=== PATIENT | female | born 1985 | race Caucasian/White ===

== ENCOUNTER 2020-08-21 07:30 | Inpatient (IN) ==
[2020-08-21] MEDS: LACTATED RINGER'S 1,000 ML IV PRN ×2 (07:57→10:01)
[2020-08-21] MEDS ORDERED: OXYTOCIN 30 UNITS/500 ML BAG IV PRN ×2 (07:58→11:36)
[2020-08-21] MEDS ORDERED: ePHEDrine sulfate 50 MG/ML AMP ONE (08:03)
[2020-08-21] MEDS ORDERED: SODIUM CHLORIDE 0.9% INJ 10 ML VIAL ONE (08:03)
[2020-08-21] MEDS ORDERED: fentaNYL citrate 100 MCG/2 ML VIAL ONE (08:04)
[2020-08-21] MEDS ORDERED: fentaNYL 2MCG/ML ROPIVACAINE 1.25MG/ML 100 ML BAG EPI ONE (08:04)
[2020-08-21] MEDS ORDERED: BUPIVACAINE 0.25% 30 ML VIAL ONE (08:04)
--- NOTE | 2020-08-21 08:16 | History & Physical Report ---
Date of Service August 21, 2020 Assessment & Plan (1) Normal labor: Admission and Anticipated Discharge Date Admission Date: August 21, 2020 IUP at 40+ weeks in active labor- was to be induced today for post term requesting epidural analgesia anticipate vaginal History of Present Illness Primary Care Provider: Morris Cr MD Patient is a 34 yo white female EDC 08/19/20 who presents with regular contractions since 0400. no SPROM or bloody show. GBS negative/ O positive Allergies Allergy/AdvReac Type Severity Reaction Status Date / Time No Known Allergies Allergy Unknown Verified 08/20/20 11:35 Home Medications Medication Instructions Recorded Confirmed Type prenat.vits,kevin,[id number] 1 tab PO HS 01/17/20 08/20/20 History Patient History Medical History Asthma Surgical History H/O arthroscopy of left knee H/O wisdom tooth extraction Status post meniscectomy Family History Other Depression Heart disease Hypertension Social History Smoking Status: Never smoker Hx Alcohol Use: No Hx Substance Use: No Preferred Language: Angolan Communication Ability: Effective Visual Impairment: No Limitations Hearing Ability: Normal Health Assessment And Treatment Teacher Required: No Beliefs That Will Affect Care: None marital status: marital status details: Brennan (33) [phone] Current Living Situation: Spouse Current Living Situation Comment: lives with spouse and son, 1 dog. current occupational status: employed current occupation: [employer] at [employer] Feels Safe at Home: Yes Assistive Devices: None Review of Systems All systems reviewed & are unremarkable except as noted in HPI & below Physical Exam Constitutional: WD/WN, vitals as above Respiratory: normal respiratory effort, lungs clear to auscultation Cardiovascular: RRR, no murmur, no edema Gastrointestinal (Abdomen): normal bowel sounds, soft, nontender, no hepatosplenomegaly Psychiatric: A+Ox3, euthymic affect Genitourinary: OB Exam Abdomen: + estimated weight (8-9 pounds) and + regular contractions (3 minutes) Manual OB Exam: + cervical dilation 4 cm, + cervical effacement 100% and + station -2 OB Exam Monitor Tracing: + external FHT monitor used, + external uterine monitor used, + category I and + normal FHT variability Results & Data ([facility]) Vital Signs (Past 12 Hours) Vital Signs Pulse BP 08/21/20 07:37 64 124/62 Coding Level of Care Code None Diagnoses Normal labor O80; Z37.9
[2020-08-21] MEDS ORDERED: ePHEDrine sulfate 50 MG/ML AMP IV PRN (08:21)
[2020-08-21] MEDS ORDERED: fentaNYL 2MCG/ML ROPIVACAINE 1.25MG/ML 100 ML BAG EPI PRN (08:21)
[2020-08-21] MEDS ORDERED: NALOXONE HCL 1 MG in SODIUM CHLORIDE 0.9% 1000ML 1,000 ML IV PRN (08:21)
[2020-08-21] MEDS ORDERED: NALOXONE HCL 0.4 MG/1 ML VIAL/CARP IV PRN (08:21)
[2020-08-21] MEDS ORDERED: diphenhydrAMINE 50 MG/ML VIAL IV PRN (08:21)
[2020-08-21] MEDS ORDERED: ONDANSETRON INJ 2 MG/ML 2 ML VIAL IV PRN (08:21)
--- NOTE | 2020-08-21 08:32 | Anesthesiology Consultation ---
Date of Service August 21, 2020 Assessment & Plan (1) Encounter for pre-operative examination: Chart Review Chart Review: Acceptable Risk for Labor Epidural Consults Requested none ASA ASA2 Proposed Anesthesia Anesthesia Type: Labor Epidural Risk / Benefits Reviewed With: PT / POA / Parent / Guardian, Accepts Plan and Informed Consent Obtained History Allergies Allergy/AdvReac Type Severity Reaction Status Date / Time No Known Allergies Allergy Unknown Verified 08/20/20 11:35 Medications Home Medications Medication Instructions Recorded Confirmed Last Taken prenat.vits,kevin,[id number] 1 tab PO HS 01/17/20 08/21/20 08/20/20 Past Medical History Medical History Anxiety Asthma Common migraine without aura Exercise / Class Metabolic Activity II 4-5 Yardwork/Stairs/Walk up hill Past Family History Family History Other Depression Heart disease Hypertension Past Surgical History Surgical History H/O arthroscopy of left knee H/O wisdom tooth extraction Status post meniscectomy Past Anesthesia History No Hx of Anesthesia Complications and No Family Hx of Anesthesia Complications History of PONV No Hx of PONV and No Hx of Motion Sickness Social History Smoking Status: Never smoker Hx Alcohol Use: No Hx Substance Use: No Physical Exam Vital Signs Last Vital Signs Pulse 64 08/21/20 07:37 BP 124/62 08/21/20 07:37 ENMT Mouth: no dentition abnormality Thyromental Distance: > or= 3.5 Finger Breadths Mallampati Class: II Neck normal visual inspection Respiratory normal respiratory effort Auscultation: lungs clear to auscultation bilaterally Cardiovascular Rate/Rhythm: regular rate and regular rhythm Lab Results Anesthesia Preop Results Results Anesthesia Widget: WBC 10.59 K/uL (4.8-10.8) 08/21/20 Hgb 12.9 g/dL (12.0-16.0) 08/21/20 Hct 37.0 % (37-47) 08/21/20 Plt 286 K/uL (130-400) 08/21/20 Na 138 mmol/L (136-145) 07/17/20 K 3.8 mmol/L (3.5-5.1) 07/17/20 Cl 110 mmol/L (98-107) H 07/17/20 CO2 20 mmol/L (21-32) L 07/17/20 BUN 8 mg/dl (7-18) 07/17/20 Creat 0.69 mg/dl (0.6-1.2) 07/17/20 Glucose Level 98 mg/dl (70-99) 07/17/20 TSH 1.500 uIu/ml (0.300-4.500) 07/17/20 Urine Color Yellow 07/17/20 Urine Appearance Clear (Clear) 07/17/20 Urine pH 6.5 (4.5-7.5) 07/17/20 Urine Specific [place] 1.017 (1.000-1.030) 07/17/20 Urine Protein Negative (Negative) 07/17/20 Urine Glucose (UA) Negative (Negative) 07/17/20 Urine Ketones Negative (Negative) 07/17/20 Urine Blood Negative (Negative) 07/17/20 Urine Nitrite Negative (Negative) 07/17/20 Urine Bilirubin Negative (Negative) 07/17/20 Urine Urobilinogen Negative (Negative) 07/17/20 Urine Leukocyte Esterase 2+ (Negative) H 07/17/20 Urine WBC (Auto) 10-30 /hpf (0-5) H 07/17/20 Urine RBC (Auto) 0-4 /hpf (0-4) 07/17/20 Urine Hyaline Casts (Auto) 1-5 /lpf (0-5) 07/17/20 Urine Epithelial Cells (Auto) >30 /lpf (0-5) H 07/17/20 Urine Bacteria (Auto) 1+ (Negative) H 07/17/20
[2020-08-21 08:33] LABS: Hemoglobin 12.9 g/dL (12.0-16.0); Mean Corpuscular Hemoglobin 31.3 pg (25-34); Mean Corpuscular Hgb Conc 34.9 g/dL (32-36); Mean Corpuscular Volume 89.8 fL (80-100); Mean Platelet Volume 10.6 fL (7.4-10.4); Platelet Count 286 K/uL (130-400); RDW Standard Deviation 46.1 fL (36.4-46.3); Red Blood Count 4.12 M/uL (4.2-5.4); White Blood Count 10.59 K/uL (4.8-10.8)
[2020-08-21] MEDS ORDERED: BENZOCAINE 20% AER SPR 82.5 GM CAN EXT PRN (11:36)
[2020-08-21] MEDS ORDERED: SUPERCREAM 0.870% 15 GM JAR EXT PRN (11:36)
[2020-08-21] MEDS ORDERED: HYDROCORTISONE ACETATE 25 MG SUPP PR PRN (11:36)
[2020-08-21] MEDS ORDERED: ACETAMINOPHEN 325 MG TAB PO PRN (11:36)
[2020-08-21] MEDS ORDERED: DIPHTHERIA/TETANUS/PERTUSSIS 0.5 ML SYR/VIAL IM ONE (11:36)
--- NOTE | 2020-08-21 11:37 | Anesthesia Procedure Note ---
Date of Service August 21, 2020 Anesthesia Post Epidural Note Vital Signs Vital Signs: Temp Pulse Resp BP Pulse Ox 99.0 F 58 L 18 128/59 L 95 08/21/20 10:13 08/21/20 11:31 08/21/20 10:13 08/21/20 11:31 08/21/20 10:40 Pain Intensity Bilateral Abdomen: Pain Intensity: 5 Notes Mental Status: alert / awake / arousable and participated in evaluation Nausea / Vomiting: adequately controlled Pain: adequately controlled Airway Patency, RR, SpO2: stable & adequate BP & HR: stable & adequate Hydration State: stable & adequate Neuraxial Anesthesia: was administered and sensory block is resolving Anesthetic Complications: no major complications apparent and Pt Satisfied with anesthetic care Epidural: Removed without complications and With tip intact
--- NOTE | 2020-08-21 15:34 | Delivery Summary ---
DATE OF OPERATION: 08/21/2020 PROCEDURE: Normal spontaneous vaginal delivery, second-degree perineal laceration repair. SURGEON: Rajesh King MD. PREOPERATIVE DIAGNOSES: 1. Single intrauterine at 40 weeks 2 days gestational age. 2. Labor. POSTOPERATIVE DIAGNOSES: 1. Single intrauterine at 40 weeks 2 days gestational age. 2. Labor. 3. Status post procedure. ESTIMATED BLOOD LOSS: 300 mL. DRAINS: None. FLUIDS: Continuous lactated Ringer. URINE OUTPUT: Not measured. COMPLICATIONS: None. FINDINGS: Viable female with weight pending, Apgars of 8 and 9 at one and five minutes respectively. DESCRIPTION OF PROCEDURE: The patient progressed to 10 cm dilated, 100% effaced, +2 station, pushed over intact perineum with epidural anesthesia and delivered a viable female , weight and Apgars as noted above. Head of the delivered in MARY position, restituted to left transverse. A nuchal cord was noted, which was easily reduced. Body and shoulders quickly followed. was noted to be vigorous soon after delivery and a 1-minute delayed cord clamping was initiated. Cord was then double clamped and cut. Cord blood was then obtained. Attention was then turned to deliver the placenta, which was delivered intact, 3-vessel cord. On inspection of perineum, vagina, and cervix, there was noted to be second degree perineal laceration. This was repaired with 3-0 Vicryl in traditional crown stitch. Both the patient and were in stable condition after the completion of the procedure. Needle, sponge and instrument counts were correct at the completion of the case. I attest to the content of the Intraoperative Record and any orders documented therein. Any exception s are noted below.
[2020-08-21] MEDS: IBUPROFEN 600 MG TAB PO PRN ×2 (18:31→23:22)
[2020-08-21] MEDS ORDERED: DOCUSATE SODIUM 100 MG CAP PO SCH (21:00)
[2020-08-22] MEDS: IBUPROFEN 600 MG TAB PO PRN ×3 (03:43→11:43)
--- NOTE | 2020-08-22 07:26 | Obstetrical Progress Note ---
Date of Service <Miguel A Vazquez MD - Last Filed: 08/22/20 07:26> August 22, 2020 Assessment & Plan <Miguel A Vazquez MD - Last Filed: 08/22/20 07:26> (1) Normal labor: A/P: Patient is a 34yo female on PPD#1 following at 40+2wga. * Patient feels well today; eating well, voiding well, ambulating well * Pain moderately-controlled with ibuprofen 600mg q4h prn * PNL: Rh pos, RI, GBS neg, COVID neg * Routine care: OOB, ambulation, diet progression as tolerated * After discharge, will have six-week follow-up with Dr. King Subjective <Miguel A Vazquez MD - Last Filed: 08/22/20 07:26> Patient is a 34yo female on PPD#1 following at 40+2wga. This morning, patient feels well "okay".Reports mild/moderate crampy abdominal pain somewhat-controlled at this time; patient requests additional motrin.Tolerating PO intake without nausea or vomiting. Patient has been able to ambulate without lightheadedness or dizziness. Voiding well without difficulty. Lochia is gradually improving over time. Patient is . Review of Systems Denies fever, chills, CP, SOB, cough, breast pain, dysuria, leg pain, leg swelling, headache, and changes in vision. Physical Exam <Miguel A Vazquez MD - Last Filed: 08/22/20 07:26> General: alert, oriented, no acute distress Cardiac: regular rate and rhythm, no murmur appreciated Respiratory: lungs clear to auscultation bilaterally a/p, no wheezes/rales/rhonchi, no increased work of breathing, symmetrical chest rise, no respiratory distress Abd: normal gravid abdomen, soft, minimally tender, BS present : uterine fundus firm, palpable 2-3 cm below umbilicus LE: no lower extremity edema bilaterally; no deep calf pain, Angel's negative bilaterally Results & Data ([facility]) <Miguel A Vazquez MD - Last Filed: 08/22/20 07:26> Vital Signs (Past 12 Hours) Vital Signs Temp Pulse Resp BP Pulse Ox 08/22/20 03:30 36.8 C 61 18 124/75 08/21/20 23:35 36.8 C 57 L 18 122/76 08/21/20 20:00 36.9 C 71 18 142/82 H 98 <Rajesh King MD - Last Filed: 08/23/20 08:24> Co-Signing Physician Notes Patient seen and evaluated and agree with the above findings and plan. Routine OB care. Stable for discharge if preferred Resident Activity Tracking <Miguel A Vazquez MD - Last Filed: 08/22/20 07:26> Resident Involvement: Resident Care Provided Care Provided: OB Delivery
[2020-08-22] MEDS ORDERED: FERROUS SULFATE 325 MG TAB PO SCH (08:00)
[2020-08-22] MEDS ORDERED: PRENATAL VITAMIN 1 TAB PO SCH (08:00)
[2020-08-22] MEDS ORDERED: bisacodyL 5 MG TABEC PO SCH (20:00)
[2020-08-24] MEDS ORDERED: bisacodyL 10 MG SUPP PR PRN (06:00)
== END 2020-08-22 16:00 | disposition home or self-care (01) | DRG 807 ==
LOC: 4S1 07:30 → 4S2 14:41
DX: Z37.0 Single live birth; O69.81X0 Labor and delivery complicated by cord around neck, without compression, not applicable or unspecified; Z3A.40 40 weeks gestation of pregnancy; O70.1 Second degree perineal laceration during delivery; O48.0 Post-term pregnancy